=== PATIENT | male | born 1945 | race Two or more races ===

== ENCOUNTER 2023-05-02 13:12 | Emergency (ER) | payer MEDICARE, SELFPAY ==
--- NOTE | ~2023-05-02 | CT_ITS ---
EXAMINATION: CT HEAD WITHOUT CONTRAST CLINICAL INFORMATION: Dizziness. COMPARISON: None available. TECHNIQUE: Contiguous axial imaging was performed from the skull base to vertex without intravenous administration of contrast. This CT examination was performed using dose optimization techniques as appropriate, variously including the following: *Automated exposure control *Adjustment of mA and/or kV according to patient size (this includes techniques or standardized protocols for targeted exams where dose is matched to indication/reason for exam; i.e. extremities or head) *Use of iterative reconstruction technique DLP: 692.00 mGy-cm FINDINGS: The lateral, third and fourth ventricles are normally outlined. The basal cisterns and cortical sulci are normally outlined as well. There is moderate bilateral periventricular and central white matter diminished attenuation. There is no acute territorial defect, hemorrhage or midline shift. The extra-axial spaces are unremarkable. Calvarium: Intact. Maxillofacial sinuses and mastoids: Clear as visualized. CT/CT head/brain wo IV con IMPRESSION: Moderate bilateral periventricular and central white matter diminished attenuation is nonspecific but likely to represent microvascular disease. No acute intracranial abnormality.
[2023-05-02 13:47] VITALS: BP 149/82; PULSE 67; RESP 18; TEMP 36.2; O2SAT 94; BMI 31.7
--- NOTE | 2023-05-02 13:47 | ED.GENADULT ---
HPI - General Adult General Chief complaint: General Medical Stated complaint: Dizziness/intermittent chest pain Time Seen by Provider: 05/02/23 20:10 Source: patient and family (Granddaughter) Mode of arrival: ambulatory History of Present Illness HPI narrative: This is a 77-year-old male with vascular dementia who is brought in by his granddaughter for concerns of 2 weeks of persistent lightheadedness and dizziness after having recovered from COVID-19 and a urinary tract infection. Patient denies any fevers or chills, shortness of breath or chest pain and denies any abdominal discomfort or urinary symptoms. Related Data Previous Rx's Medication Instructions Recorded meclizine 12.5 mg tablet 12.5 mg PO TID PRN dizziness #14 05/02/23 tabs Allergies Allergy/AdvReac Type Severity Reaction Status Date / Time No Known Allergies Allergy Verified 05/02/23 13:46 Review of Systems Review of Systems: Pertinent positives and negatives as stated in HPI [facility] Past Medical History Source: nursing notes reviewed Social History Social History Advance Directives: No Advance Directives Information Provided: Yes Physical Exam ED Vital Signs: Vital Signs - 24 hr 05/02/23 13:47 Temperature 97.1 F Pulse Rate 67 Respiratory Rate 18 Blood Pressure 149/82 H Pulse Oximetry 94 Oxygen Delivery Method Room Air BMI result Body Mass Index 31.7 VITAL SIGNS: Reviewed. GENERAL: Well developed, well nourished, in no acute distress. HEAD: Normocephalic/atraumatic EYES: PERRLA, EOMI EARS: Ext canals without abnormality NOSE: Nares patent bilateral OROPHARYNX: no oral lesions noted, posterior pharynx clear NECK: Supple, no adenopathy LUNGS: Normal breath sounds. No adventitious sounds or accessory muscle use. SpO2<94> CARDIOVASCULAR: Regular rate and rhythm without noted murmurs, no JVD or lower extremity edema. ABDOMEN: Soft, non-tender, non-distended with bowel sounds. MUSCULOSKELETAL: No tenderness, deformities, or effusions noted on gross inspection. EXTREMITIES: No cyanosis, clubbing or edema. SKIN: Inspection of the skin reveals no rashes NEUROLOGIC: Alert and oriented x 3. Strength and sensation to light touch were grossly intact x 4, no facial asymmetry, no pronator drift, cranial nerves 2-12 are grossly intact. Course Course Course Narrative: This is an RME: Additional HPI, ROS, PE not included below will be deferred to primary provider. Patient is a 77 year old male presenting complaining of dizziness and chest pain starting Monday. Has a recent history of COVID in March and that is when the dizziness started. Plan: labs, imaging, ekg Medical Decision Making Medical Decision Making [facility] Narrative: 77-year-old male with history and clinical presentation most consistent with viral mediated in the form of labyrinthitis, or possible infection, anemia and felt to be less likely central in etiology. Patient has no focal symptoms. I reviewed all investigations and hematologic indices are negative for evidence of infection or anemia as there is no leukocytosis/left shift, no anemia or thrombocytopenia. There is evidence of eosinophilia unclear significance as patient does not appear to be short of breath or be hypoxic or have any symptoms to suggest asthma. Chemistry indices are negative for electrolyte derangements, no KEITH and liver enzyme values are within normal limits. CT of the head consistent with patient's known underlying vascular dementia as it does demonstrate microvascular disease. Patient unable to provide urinalysis at this time and I have low clinical suspicion for a UTI. Both the patient and family wished to be discharged. Differential Diagnosis Differential Diagnoses: The differential diagnosis associated with the presentation includes Please see the discussion above Admission/Observation Consideration of admission/observation: Escalation of care including admission/observation considered Please see the discussion above Lab Data [facility] Lab Attestation statement: I reviewed the patient's lab results. Please see the discussion above 05/02/23 14:08 05/02/23 14:08 Labs: Lab Results 05/02/23 05/02/23 05/02/23 Range/Units 14:08 14:08 14:08 WBC 8.4 (4.8-10.8) X10*3/uL RBC 4.76 (4.60-5.80) X10*6/uL Hgb 14.8 (14.0-18.0) g/dl Hct 43.8 (42.0-52.0) % MCV 92.0 (80.0-98.0) fL MCH 31.1 (27.0-33.0) pg MCHC 33.8 (31.0-36.0) g/dl RDW 13.0 (11.0-16.0) % Plt Count 236 (160-400) X10*3/uL MPV 10.4 (9.4-12.4) fL Immature Gran % (Auto) 0.2 (0.0-0.4) % Neut % (Auto) 50.6 (45-73) % Lymph % (Auto) 25.2 (20-40) % Perkins % (Auto) 10.3 (2-11) % Eos % (Auto) 13.0 H (0-4) % Baso % (Auto) 0.7 (0-2) % Lymph # (Auto) 2.1 (1.2-4.9) X10*3/uL Perkins # (Auto) 0.9 (0.1-1.2) X10*3/uL Eos # (Auto) 1.1 H (0.0-0.4) X10*3/uL Baso # (Auto) 0.1 (0.0-0.2) X10*3/uL Abs Immat Gran (auto) 0.02 (0.00-0.03) X10*3/uL Absolute Neuts (auto) 4.3 (2.0-8.3) x10*3/uL Absolute Nucleated RBC 0.000 (0.0-0.012) X10*3/uL Nucleated RBC % (auto) 0.0 (0.0-0.2) /100WBC Sodium 139 (135-145) mmol/L Potassium 5.0 (3.3-5.1) mmol/L Chloride 105 (96-108) mmol/L Carbon Dioxide 26 (22-29) mmol/L Anion Gap 13 (12-20) BUN 21 H (9-16) mg/dL Creatinine 0.87 (0.5-1.4) mg/dL Estim Creat Clear Calc 71.9 Estimated GFR > 60 Random Glucose 102 (60-115) mg/dL Calcium 9.1 (8.4-10.2) mg/dL Magnesium 2.2 (1.6-2.6) mg/dL Total Bilirubin 0.4 (0.0-1.0) mg/dL AST 32 (5-37) U/L ALT 33 (0-40) U/L Alkaline Phosphatase 106 (39-117) U/L Troponin I High Sens 2.9 (<3.5-35.0) ng/L Total Protein 7.3 (6.5-8.0) g/dL Albumin 3.8 (3.5-5.0) g/dL Independent Interpretation I performed an independent interpretation of an: EKG Interpretation: Normal sinus rhythm, HR-68, no STEMI, MI/QRS/QTC is within normal limits. Radiology Impression Discussion of test interpretation with radiology: I have reviewed the radiologist's reading. Radiologist Impression: Please see the discussion above Chronic Conditions Patient?s care impacted by: Hypertension Discharge Plan Discharge Clinical Impression: Labyrinthitis Patient Disposition: Home, Self-Care Instructions: Labyrinthitis (ED) Additional Instructions: 1. Resume all home medications except the potassium. The potassium levels are at the upper limits and you should no longer take this medication until re-evaluated by your primary care doctor. 2. It is suspected that you have dizziness secondary to your recent viral infection which will be treated with meclizine and a prescription has been sent to your pharmacy. 3. Recommend follow-up with your primary care provider 1st thing in the morning. Return to the ER for any worsening symptoms. Prescriptions: New meclizine 12.5 mg tablet 12.5 mg PO TID PRN (Reason: dizziness) Qty: 14 0RF Referrals: Branden Vogel III, MD [Primary Care Provider] -
--- NOTE | 2023-05-02 13:49 | ECG_ITS ---
Test Reason : DIZZINESS Blood Pressure : / mmHG Vent. Rate : 068 BPM Atrial Rate : 068 BPM P-R Int : 130 ms QRS Dur : 080 ms QT Int : 388 ms P-R-T Axes : 035 -32 011 degrees QTc Int : 412 ms Normal sinus rhythm Left axis deviation Abnormal ECG No previous ECGs available Referred By: Diana Mahajan Electronically Signed By:KATINA SOLANO
[2023-05-02 14:14] LABS: MANUAL DIFF FLAG NO
[2023-05-02 14:15] LABS: Basophils Absolute Auto 0.1 X10*3/uL (0.0-0.2); Basophils Percent Auto 0.7 % (0-2); Eosinophils Absolute Auto 1.1 X10*3/uL (0.0-0.4); Hematocrit 43.8 % (42.0-52.0); Hemoglobin 14.8 g/dl (14.0-18.0); Imm Gran Abs Auto 0.02 X10*3/uL (0.00-0.03); Imm Gran Pct Auto 0.2 % (0.0-0.4); Lymphocytes Absolute Auto 2.1 X10*3/uL (1.2-4.9); Lymphocytes Percent Auto 25.2 % (20-40); Mean Corpuscular HGB Conc 33.8 g/dl (31.0-36.0); Mean Corpuscular Hemoglobin 31.1 pg (27.0-33.0); Mean Platelet Volume 10.4 fL (9.4-12.4); Monocytes Absolute Auto 0.9 X10*3/uL (0.1-1.2); Monocytes Percent Auto 10.3 % (2-11); Neutrophils Absolute Auto 4.3 x10*3/uL (2.0-8.3); Neutrophils Percent Auto 50.6 % (45-73); Platelet Count 236 X10*3/uL (160-400); Red Blood Count 4.76 X10*6/uL (4.60-5.80); White Blood Count 8.4 X10*3/uL (4.8-10.8)
[2023-05-02 14:34] LABS: Alanine Aminotransferase 33 U/L (0-40); Albumin Level 3.8 g/dL (3.5-5.0); Alkaline Phosphatase 106 U/L (39-117); Anion Gap 13 (12-20); Aspartate Amino Transferase 32 U/L (5-37); Bilirubin Total 0.4 mg/dL (0.0-1.0); Blood Urea Nitrogen 21 mg/dL (9-16); Calcium 9.1 mg/dL (8.4-10.2); Carbon Dioxide 26 mmol/L (22-29); Chloride 105 mmol/L (96-108); Creatinine Clr Calc Pharmacy 71.9; Estimated Glomerular Filt Rate > 60; Glucose Random 102 mg/dL (60-115); Magnesium 2.2 mg/dL (1.6-2.6); Sodium 139 mmol/L (135-145); Total Protein 7.3 g/dL (6.5-8.0)
[2023-05-02 14:37] LABS: Troponin-I High Sensitivity 2.9 ng/L (<3.5-35.0)
[2023-05-02] MEDS: Meclizine HCl 12.5 MG TABLET PO (22:48)
[2023-05-02 22:49] VITALS: BP 141/90; PULSE 69; RESP 18; TEMP 36.7; O2SAT 95
== END 2023-05-02 22:52 | disposition home or self-care (01) ==
PROVIDERS: Physician Assistant; Emergency Provider Student in an Organized Health Care Education/Training Program; PCP Internal Medicine
DX: H83.09 Labyrinthitis, unspecified ear (principal); R42 Dizziness and giddiness; I10 Essential (primary) hypertension; F01.50 Vascular dementia, unspecified severity, without behavioral disturbance, psychotic disturbance, mood disturbance, and anxiety
CPT/HCPCS: 36415; 70450; 80053; 83735; 84484; 85025; 93005; 99284

== ENCOUNTER 2025-07-31 14:33 | Outpatient (AMB) | payer MEDICARE, SELFPAY ==
--- NOTE | 2025-07-31 14:35 | MHC.OFFVIS ---
Intake Visit Reasons: 6m Allergies No Known Allergies Allergy (Verified 05/02/23 13:46) HPI Comments Details: 79 yo man with obesity, in vascular dementia with MRI in 2019 revealing significant white matter changes that were difficult to explain based upon limited vascular risk factors suggestive of probably an underlying genetic condition. He is presenting with wellness visit and medication management concerns. He has a documented history of experiencing dizziness, especially when overstimulated by visitor activity, though he has had no recent falls. The patient has refused physical therapy despite persistent balance issues highlighted by the family. Additionally, he experiences headaches, which have reportedly become less frequent bothersome over recent periods. The ongoing management includes the administration of quetiapine 25mg, which he has been taking as needed throughout the day. Regarding ocular conditions, the patient received about 11 injections for retinal care. While physical therapy was suggested previously amid discussions during a primary care visit, the patient declined this intervention along with further imaging, such as X-rays. Review of Systems Narrative - Neurology: Reports dizziness, especially during overstimulation; reports tension headaches which have decreased. - Musculoskeletal: Denies any recent falls; declined physical therapy suggestions. - Ophthalmology: Reports ongoing retinal injections, compliant with treatment. Physical Exam Neuro Other: Mental Status: he is alert and awake with normal spontaneity of speech fluency comprehension and affect. Cranial Nerves: CN II: Visual alejo full to confrontation, visual acuity intact. CN III, IV, : Pupils equal, round, reactive to light and accommodation. Extraocular movements are normal. CN V: Facial sensation is normal. CN VII: Facial movements symmetrical. CN VIII: Hearing intact to bedside conversation is normal. CN IX, X: Palate elevates symmetrically. CN XI: Shoulder shrug and head turn symmetrical. CN XII: Tongue midline without atrophy or fasciculations. Motor: Deep tendon reflexes are trace to absent. No obvious focal arm or leg weakness. Gait and Station: Cautious gait. Extrapyramidal: Full facial expressions and blinking. No rigidity. Movements are appropriate with no tremor or abnormality. Speech: Normal; no dysarthria or tremor. Assessment & Plan Assessment & Plan (1) Leukoencephalopathy: Comment: MRI brain WO in [place] in Aug 2021: mod to severe WM changes, not typical of MVD, ?demyelinating disease, mild atrophy MRI brain WO at [facility] in 2019: mod non specific WM changes, not typical of MVD either, mild atrophy Labs at [facility] in 2020: CBC ok, ESR 44 in 2019, CMP ok, LFTs ok, B12 536, TSH 1.02, LDL 97. VICTORIA in 2019 ok, RPR in 2019 ok. 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 Main issue was change in personality and anxiety, which has responded well to small dose of quetiapine 25 mg 1 or 2 a day. Prescription was continued. 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
--- OUTSIDE RECORDS SUMMARY | 2025-07-31 17:58 | XMS_ITS | Clinical Summary ---
Author Organization [address] [place] [address] [place] [phone] Phone Care Team Providers Care Daycare Provider Name Role Phone Branden Vogel MD Primary Care Provider [phone] Allergies Active Allergy Reactions Criticality Noted Date Comments Lisinopril Cough 09/07/2010 Medications albuterol HFA (PROAIR HFA ; PROVENTIL HFA ; VENTOLIN HFA) 90 mcg/actuation inhaler 9 Active aspirin 81 mg EC tablet Take 81 mg by mouth daily. Active vit A/vit C/vit E/zinc/copper (PRESERVISION AREDS ORAL) Active QUEtiapine (SEROquel) 25 mg tablet Take 1 tablet by mouth daily. 1 Active omeprazole (PriLOSEC) [address] capsule Take 1 capsule (40 mg total) by mouth 2 (two) times a day. Do not crush or chew. 180 capsule 1 4 Active amLODIPine (NORVASC) 5 mg tablet TAKE 1 TABLET BY MOUTH EVERY DAY 90 tablet 1 5 Active rosuvastatin (CRESTOR) 5 mg tablet TAKE 1 TABLET BY MOUTH EVERYDAY AT BEDTIME 90 tablet 1 5 Active ammonium lactate (AMLACTIN) 12 % cream Apply topically if needed for dry skin. 770 g 3 5 09/11/20 25 Active LORazepam (Ativan) 0.5 mg tablet Take 1 tablet by mouth 30 minutes prior to flight. 6 tablet 5 Active clotrimazole (LOTRIMIN) 1 % cream Apply topically 2 (two) times a day. 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 Adjustment disorder with depressed mood 12/08/19 16 Obesity (BMI 30.0-34.9) 01/03/2011 MDD (major depressive disorder) 10/19/2010 Tubular adenoma of colon 10/01/2009 Overview (07/26/2024): Colonoscopy 10/18/04 GERD (gastroesophageal reflux disease) 9 Hyperlipidemia 11/26/2008 Hypertension 11/26/2008 Encounters Date Type Department Care Team Description 07/17/2025 8:00 AM EDT Office Visit Adult Medicine [address] [phone] Estiven Ross [place] Hypertension, unspecified type (Primary Dx); Hyperlipidemia, unspecified hyperlipidemia type; Prediabetes; Moderate dementia, unspecified dementia type, unspecified whether behavioral, psychotic, or mood disturbance or anxiety (CMS/HCC V24, CMS/HCC V28); Gastroesophageal reflux disease without esophagitis; Chronic neck pain; Fear of flying 06/13/2025 10:30 AM EDT Office Visit Orthopedic Surgery [address] [phone] Jose Kennedy, DPM Ingrowing nail (Primary Dx); Dermatophytosis of nail; Diabetic mononeuropathy simplex ([facility] V24, [facility] V28); Type II diabetes mellitus with peripheral circulatory disorder ([facility] V24, [facility] V28); Xerosis of skin; Pain in toe of left foot; Pain in toe of right foot; Onychomycosis; Difficulty walking from Last 3 Months Immunizations Immunization Administration Dates Next Due Influenza Quadravalent, MDCK , 0.5ml, with preservative (Flucelvax) 6mo and older 07/03/2017 Influenza trivalent, 0.5mL ( Fluad) 65yo and older 06/28/2022,07/02/2019,07/16/2015,08/26,08/20/2012,07/01/2011,09/07/2010 Influenza trivalent, with pr eservative (Fluzone; Afluria) 6mo and older 10/26/2018 Pneumococcal polysaccharide 23 valent (Pneumovax 23) 2yo and older 11/05/2013 TD, Adsorbed, Preservative Free 08/20/2012 Zoster recombinant (Shingrix ) 19yo and older 01/08/2023,09/22/2022 Surgical History Surgery Date Site/Laterality Comments COLONOSCOPY 2003 Zeroogian adenoma COLONOSCOPY 10/30/09 : adenoma and diverticulosis; repeat in five years COLONOSCOPY 12/29/14 : tics; repeat in 5 yrs Medical History Medical History Date Comments MDD (major depressive disorder) 10/19/2010 DX:MDD (major depressive disorder) Obesity (BMI 30.0-34.9) 01/03/2011 DX:Obesi ty (BMI 30.0-34.9) Tubular adenoma of colon 10/01/2009 DX:Tubu lar adenoma of colon; COMMENT: Colonoscopy 10/18/04 Adjustment disorder with depressed mood 6 DX:Adjustment disorder with depressed mood 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/15/2017 DX:Arthritis o f neck GERD (gastroesophageal reflux disease) 11/26/2008 DX:GERD (gastroesophageal reflux disease) Hyperlipidemia 11/26/2008 DX:Hyperlipidemi a Hypertension 11/26/2008 DX:Hypertension Family History Medical History Relation Name Comments Hypertension Brother 1 Hypertension Brother 2 Coronary artery disease Mother Relation Name Status Comments Brother 1 Brother 2 Father Mother Alive Social History Tobacco Use Types Packs/Day Years Used Date Smoking Tobacco: Never Smokeless Tobacco: Never Tobacco Cessation:Counseling Given: Not Answered Alcohol Use Standard Drinks/Week Comments No 0 (1 standard drink = 0.6 oz pur e alcohol) Housing Instability Answer Date Recorde d Are you worried that in the next 2 months you may not have stable housing? No 10/22/2024 Food Access & Nutrition Answer Date Rec orded Do you have access to a vari ety of food including fruits and vegetables? Yes 10/22/2024 Access to Healthcare Answer Date Record ed Within the last 3 months, ho w many times did you visit the emergency department for your medical care? 0 10/22/2024 Health Literacy Answer Date Recorded How often do you need to hav e someone help you when you read instructions, pamphlets, or other written material from your doctor or pharmacy? Often 10/22/2024 Caregiver: How often do you need to have someone help you when you read instructions, pamphlets, or other written material from your doctor or pharmacy? Not on file 10/22/2024 Financial Risk Answer Date Recorded How hard is it for you to pa y for the very basics like food, housing, medical care, and air conditioning / heating? Not very hard 10/22/2024 Transportation Answer Date Recorded Has the lack of transportati on kept you from meetings, work, or from getting things needed for daily living? No Has the lack of transportati on kept you from medical appointments or from getting medications? No 10/22/2024 Social Isolation Answer Date Recorded How often do you feel lonely or isolated from those around you? Unable to respond 10/22/2024 Food Risk Answer Date Recorded Within the past 12 months we worried whether our food would run out before we got money to buy more. Never true 10/22/2024 Within the past 12 months th e food we bought just didn't last and we didn't have money to get more. Never true 10/22/2024 Dependent Care Answer Date Recorded Do you need help finding or paying for care for your loved ones. For example, child care center administrator or elderly care for an older adult? No 10/22/2024 Education Answer Date Recorded Do you think completing more education or training, like finishing a GED, going to college, or learning a trade, would be helpful for you? No 10/22/2024 Employment and Income Answer Date Recor ded During the last four weeks, have you been actively looking for work? No 10/22/2024 Living Situation Answer Date Recorded What is your living situation? Unrecognized valu e 10/22/2024 Sex and Gender Information Value Date Recorded Sex Assigned at Not on file Legal Sex Male 10:47 PM EST Gender Identity Not on file Sexual Orientation Not on file Obstetrics History Last Filed Vital Signs Vital Sign Reading Time Taken Comments Blood Pressure 140/78 07/17/2025 8:33 AM EDT Pulse 78 07/17/2025 8:02 AM EDT Temperature 36.4 C (97.6 F) 07/17/2025 7:57 AM EDT Respiratory Rate 15 07/17/2025 7:57 AM EDT Oxygen Saturation 96% 07/17/2025 7:57 AM EDT Inhaled Oxygen Concentration - - Weight 88.8 kg (195 lb 11.2 oz) 07/17/2025 7:57 AM EDT Height 165.1 cm (5' 5 ) 07/17/2025 7:57 AM EDT Body Mass Index 32.57 07/17/2025 7:57 AM EDT Plan of Treatment Upcoming Encounters Date Type Department Care Team (Late st Contact Info) Description 09/25/2025 10:15 AM EST Office Visit Orthopedic Surgery [facility] [address] [phone] Jose Kennedy, DPM [address] [phone] 02/12/2026 9:45 AM EDT Office Visit Adult Medicine [address] [phone] Branden Vogel MD [address] [place] [address] Health Maintenance Due Date Last Done Comments Diabetes: Annual Foot Exam 12/06/1955 Diabetes: Annual Retina Eye Exam 12/06/1955 DTaP,Tdap,and Td Vaccines (1 - Tdap) 08/21/2012 08/20/2012 Pneumococcal Vaccine: 50+ Years (2 of 2 - PCV) 11/05/2014 11/05/2013 RSV Immunization Adult Patients (1 - 1-dose 75+ series) 12/06/2018 Colorectal Cancer Screening: Colonoscopy 12/30/2019 12/29/2014 Medicare Annual Wellness Visit 08/27/2022 COVID-19 Vaccine (3 - season) 2025 09/06/2021, 12/22/2020 Influenza Vaccine (#1) 2025 , 07/02/2019, 10/26/2018, Additional history exists Diabetes: Annual Urine Albumin-Creatinine Ratio (uACR) 06/13/2025 Diabetes: Blood Sugar Control Test (HGBA1C) 07/05/2025 01/03/2025, 02/23/2024, 02/23/2024 Social Influencers of Health Screening 10/22/2025 10/22/2024 Falls Risk Assessment 10/23/2025 10/23/2024, 024 Diabetes: Annual GFR (Glomerular Filtration Rate) 01/03/2026 01/03/2025, 08/02/2024, 02/23/2024, Additional history exists Hypertension/CHF/CAD Annual BMP Blood Test 01/03/2026 01/03/2025, 08/02/2024, 02/23/2024, Additional history exists Cholesterol Screening (Lipid Panel) 01/03/2030 01/03/2025, 02/23/2024, 02/23/2024 Zoster Vaccines Completed 01/08/2023, 09/22/2022 Depression Screening Completed 10/22/2024 HIB Vaccines Aged Out No longer eligi ble based on patient's age to complete this topic HPV Vaccines Aged Out No longer eligi ble based on patient's age to complete this topic Hepatitis A Vaccines Aged Out No long er eligible based on patient's age to complete this topic Hepatitis B Vaccines Aged Out No long er eligible based on patient's age to complete this topic IPV Vaccines Aged Out No longer eligi ble based on patient's age to complete this topic MMR Vaccines Aged Out No longer eligi ble based on patient's age to complete this topic Meningococcal ACWY Vaccine Aged Out N o longer eligible based on patient's age to complete this topic Meningococcal B Vaccine Aged Out No l onger eligible based on patient's age to complete this topic RSV Immunization Patients Under 20 months Aged Out No longer eligible based on patient's age to complete this topic Varicella Vaccines Aged Out No longer eligible based on patient's age to complete this topic Procedures Procedure Name Priority Date/Time Associated Diagnosis Comments BASIC METABOLIC PANEL Routine 01/03/2025 9:08 AM EDT Prediabetes HEMOGLOBIN A1C Routine 01/03/2025 9:08 AM EDT Prediabetes LIPID PANEL WITH REFLEX TO DIRECT LDL Routine 01/03/2025 9:08 AM EDT Hyperlipidemia, unspecified hyperlipidemia type FALLS RISK ASSESSMENT Routine 02/23/2024 COLONOSCOPY Routine 12/29/2014 from Last 3 Months or Most Recently Relevant to Health Maintenance Results * Lipid panel with reflex to direct LDL (01/03/2025 9:08 AM EDT) Cholesterol 118 0 - 200 mg/dL LAB CHEMISTRY METHOD 01/03/2025 1:26 PM EDT [facility] Triglycerides 112 0 - 150 mg/dL LAB CHEMISTRY METHOD 01/03/2025 1:26 PM [facility] HDL 43 >=40 mg/dL LAB CHEMISTRY METHOD 01/03/2025 1:26 PM T [facility] LDL Calculated 53 0 - 100 mg/dL LAB CHE[facility]STRY [facility] VLDL Cholesterol [place] 22.4 mg/dL LAB CHEMISTRY METHOD 01/03/2025 1:26 PM [facility] Non HDL Chol. (LDL+VLDL) 75 <145 mg/dL LAB CHEMISTRY METHOD 01/03/2025 1:26 PM EDT [facility] Chol/HDL Ratio 2.7 0.0 - 4.4 LAB CHEMISTRY METHOD 01/03/2025 1:26 PM EDT [facility] Blood Venous blood specimen / Unknown Venipuncture / Unknown 01/03/2025 9:08 AM EDT 01/03/2025 9:08 AM EDT Estiven Ross [place] LAB BLOOD ORDERABLES Fi nal Result Performing Organization Address [facility]/ZIP Co de Phone Number [facility] [address] [place] [address], [place] [phone] * Hemoglobin A1c (01/03/2025 9:08 AM EDT) Pathologist [facility] Hemoglobin A1C 6.2 <6.5 % LAB CHEMISTRY METHOD 01/03/2025 2:05 PM EDT [facility] Mean Bld Glu Estim. 131 mg/dL LAB CHEMISTRY METHOD 01/03/2025 2:05 PM EDT [facility] Blood Venous blood specimen / Unknown Venipuncture / Unknown 01/03/2025 9:08 AM EDT 01/03/2025 9:08 AM EDT Estiven Ross [place] LAB BLOOD ORDERABLES Fi nal Result Performing Organization Address [facility] de Phone Number [facility] [address] [place] [address], [place] [phone] * (ABNORMAL) Basic metabolic panel (01/03/2025 9:08 AM EDT) Pathologist [facility] Sodium 137 133 - 145 mmol/L LAB CHEMISTRY METHOD 01/03/2025 1:26 PM EDT [facility] Potassium 4.1 3.5 - 5.5 mmol/L LAB CHEMISTRY METHOD 01/03/2025 1:26 PM EDT [facility] Chloride 103 96 - 110 mmol/L LAB CHEMISTRY METHOD 01/03/2025 1:26 PM [facility] CO2 29 21 - 32 mmol/L LAB CHEMISTRY METHOD 01/03/2025 1:26 PM [facility] Anion Gap 5 3 - 11 LAB CHEMISTRY METHOD 01/03/2025 1:26 PM [facility] Glucose 106(H) 70 - 100 mg/dL LAB CHEMISTRY METHOD 01/03/2025 1:26 PM [facility] BUN 21 5 - 25 mg/dL LAB CHEMISTRY METHOD 01/03/2025 1:26 PM [facility] Creatinine 0.81 0.70 - 1.30 mg/dL LAB CHEMISTRY METHOD 01/03/2025 1:26 PM [facility] eGFR 89 >=60 mL/min/1. 73m2 LAB CHEMISTRY METHOD 01/03/2025 1:26 PM [facility] Comment:Calculation based on the Chronic Kidney Disease Epidemiology Collaboration (CKD-EPI) equation refit without adjustment for race. BUN/Creatinine Ratio 25.9 LAB CHEMISTRY METHOD 01/03/2025 1:26 PM [facility] Calcium 9.1 8.5 - 10.5 mg/dL LAB CHEMISTRY METHOD 01/03/2025 1:26 PM [facility] Blood Venous blood specimen / Unknown Venipuncture / Unknown 01/03/2025 9:08 AM EDT 01/03/2025 9:08 AM EDT Estiven VASQUEZ LAB BLOOD ORDERABLES Fi nal Result [facility] [address] [place] [address], * Falls Risk Assessment (02/23/2024) Pathologist [facility] Falls Risk Assessment Abstracted us Historical Provider HEALTH MAINTENANCE Final Result * Colonoscopy (12/29/2014) Colonoscopy Abstracted, no interpretation Anatomical Region Laterality Modality Other us Historical Provider HEALTH MAINTENANCE Final Result from Last 3 Months or Most Recently Relevant to Health Maintenance Insurance MEDICARE [facility] Care Teams Daycare Provider Relationship Specialty Start Date End Date Branden Vogel MD [address] [place] [phone] PCP - General Internal Medicine 08/02/24
--- OUTSIDE RECORDS SUMMARY | 2025-07-31 17:58 | XMS_ITS | Clinical Summary ---
Author Organization [facility] [facility] Address [address] [facility] [address] [place] [phone] Phone Care Team Providers Care Liability Claims Adjuster Name Role Phone Unknown, Unknown Primary Care Provider Jennifer garcia Social History Tobacco Use Types Packs/Day Years Used Date Smoking Tobacco: Never Assessed Education Answer Date Recorded Are you interested in more education? Not on [place] e 01/13/2023 Are you concerned about learning? Not on file 01/13/2023 No 01/13/2023 No 01/13/2023 Digital Access Answer Date Recorded No 02/11/2023 No 02/11/2023 No 02/11/2023 Reliable internet access at home? Not on file 02/11/2023 Device with a working camera? Not on file Sex and Gender Information Value Date Recorded Sex Assigned at Not on file Legal Sex Male 4:22 PM EST Gender Identity Not on file Sexual Orientation Not on file Plan of Treatment Health Maintenance Due Date Last Done Comments DEPRESSION SCREENING 1957 ZOSTER VACCINES (1 of 2) 12/06/1993 PNEUMOCOCCAL VACCINES (50+ years) (2 of 2 - PCV) 11/05/2014 11/05/2013 RSV VACCINE (1 - 1-dose 75+ series) 12/06/2018 Adult Td,Tdap Booster 08/20/2022 08/20/2012 INFLUENZA VACCINE (#1) 2025 9, 10/26/2018, 07/16/2015, Additional history exists COVID-19 VACCINE (2 - season) 2025 12/22/2020 HEPATITIS A VACCINES Aged Out No long er eligible based on patient's age to complete this topic HIB VACCINES Aged Out No longer eligi ble based on patient's age to complete this topic IPV VACCINES Aged Out No longer eligi ble based on patient's age to complete this topic MENINGOCOCCAL VACCINES (ACWY) Aged Out No longer eligible based on patient's age to complete this topic MENINGOCOCCAL VACCINES (B) Aged Out N o longer eligible based on patient's age to complete this topic Medical Devices Not on file Insurance [employer] SUPPLEMENT [employer] SU[employer] SU[employer]MENT [employer] SU[employer] SUPP[employer]MENT BL[employer] SU[employer]MENT [employer] SU[employer] SU[employer]MENT Care Teams Liability Claims Adjuster Relationship Specialty Start Date End Date Unknown, Unknown, PCP - General 09/03/18 Additional Source Comments The information contained in this document represents components of the legal health record. It is not the complete legal health record.[facility]
== END 2025-07-31 14:42 | disposition home or self-care (01) ==
LOC: HO.HSM 14:33
PROVIDERS: PCP Internal Medicine; Referring Provider Internal Medicine; Visit Provider Psychiatry & Neurology Neurology
DX: G93.49 Other encephalopathy (principal); F01.B18 Vascular dementia, moderate, with other behavioral disturbance
CPT/HCPCS: 99213; G2211

== ENCOUNTER → 2025-07-31 14:33 | Outpatient (BNVA) | payer MEDICARE, SELFPAY | PROVIDERS: PCP Internal Medicine; Referring Provider Internal Medicine; Visit Provider Psychiatry & Neurology Neurology | DX: G93.49 Other encephalopathy (principal); F01.B18 Vascular dementia, moderate, with other behavioral disturbance | CPT/HCPCS: 99212 ==